=== PATIENT | female | born 1955 | race Two or more races ===

== ENCOUNTER → 2024-01-02 | Outpatient (CLI) | payer MEDICAID, SELFPAY ==
--- NOTE | 2024-01-02 14:30 | XR_ITS ---
Examination: MRI cervical spine without intravenous contrast Date and time of exam: January 02, 2024 1449 hours INDICATIONS: Neck pain months Technique: Multiple axial and sagittal sections of the cervical spine to been obtained. T2 weighted sagittal sections, TR 3, 270, TE 117 T1-weighted sagittal sections, TR 500, TE 11 T1-weighted axial sections, TR 607, TE 12, axial sections TR 18, TE 27 and T2 weighted transverse sections, TR 3920, TE 122. Findings: Adequate alignment cervical vertebral bodies on the lateral view No cervical fracture Intact odontoid Moderate distention C4-C5, C5-C6 Diffuse cervical disc desiccation C2-C3 1 mm central disc bulge C3-C4 no disc protrusion C4-C5 5 mm central subarticular osteophyte disc complex, indenting the ventral margin cervical cord and producing advanced bilateral neural foraminal stenosis C5-C6 uncinate process hypertrophy with advanced bilateral neural foraminal stenosis C6-C7 moderate bilateral neural foraminal stenosis C7-T1 no disc protrusion IMPRESSION: C4-C5 severe spinal stenosis, 5 mm central subarticular osteophyte disc complex indenting the ventral margin cervical cord advanced bilateral neural foraminal stenosis C5-C6 advanced bilateral neural foraminal stenosis C6-C7 moderate bilateral neural foraminal stenosis
== END | disposition home or self-care (01) ==
LOC: SMRI 14:22
PROVIDERS: Referring Provider Physician Assistant; Visit Provider Physician Assistant
DX: M48.02 Spinal stenosis, cervical region (principal); M25.78 Osteophyte, vertebrae
CPT/HCPCS: 72141

== ENCOUNTER → 2024-05-30 | Outpatient (CLI) | payer MEDICAID, SELFPAY ==
--- NOTE | 2024-05-30 16:02 | XR_ITS ---
Examination: Lumbar spine 7 views TECHNIQUE: AP, lateral, coned lateral of the lumbar spine, standing lateral flexion, standing lateral extension, NIX, TAMAZIGHT lumbar spine 7 views Exam date and time: May 30, 2024, 1613 hours. INDICATIONS: Low back pain several years. FINDINGS: Moderate osteopenia Grade 2 anterolisthesis L4 on L5 Diffuse lumbar degenerative disc disease advanced at L4-L5 No lumbar fracture No significant range of motion between flexion and extension IMPRESSION: Grade 2 anterolisthesis L4 on L5 Advanced degenerative disc disease L4-L5
== END | disposition home or self-care (01) ==
LOC: CDIM 15:51
PROVIDERS: Referring Provider Physician Assistant; Visit Provider Physician Assistant
DX: M51.369 Other intervertebral disc degeneration, lumbar region without mention of lumbar back pain or lower extremity pain (principal)
CPT/HCPCS: 72114